=== PATIENT | male | born 1975 | race Caucasian/White ===

== ENCOUNTER 2019-12-07 14:50 | Emergency (ER) | payer OTHER ==
[~2019-12-07] VITALS: Ht 170.2 cm; Wt 104.3 kg
[2019-12-07 15:24] LABS: ABSOLUTE BASOPHILS 0.1 thou/uL (0.0-0.2); ABSOLUTE EOSINOPHILS 0.3 thou/uL (0.0-0.7); ABSOLUTE LYMPHOCYTES 3.1 thou/uL (0.8-5.3); ABSOLUTE MONOCYTES 0.6 thou/uL (0.0-1.2); ABSOLUTE NEUTROPHILS 4.3 thou/uL (1.6-8.1); BASOPHILS 0.8 %; EOSINOPHILS 3.3 %; HEMATOCRIT 42.9 % (42.0-52.0); HEMOGLOBIN 14.8 gm/dL (14.0-18.0); MCH 30.8 pg (26.0-34.0); MCHC 34.6 g/dL (28.0-37.0); MCV 89.2 fL (80.0-100.0); MONOCYTES 6.7 %; NUCLEATED RBCS 0 /100WBC; PLATELET COUNT* 238 thou/uL (150-400); POLYS 52.2 %; RBC 4.81 mil/uL (4.50-6.00); RDW-CV 13.3 % (10.5-14.5); WBC 8.2 thou/uL (4.0-11.0)
[2019-12-07 15:27] VITALS: BP 126/83
[2019-12-07 15:32] LABS: CALCIUM 8.7 mg/dL (8.5-10.1); CREATININE 1.2 mg/dL (0.6-1.3); POTASSIUM 3.6 mmol/L (3.5-5.1)
[2019-12-07 15:34] LABS: APTT 24.2 Seconds (25.0-31.3); PROTIME 10.5 Seconds (9.20-11.50)
[2019-12-07 15:45] LABS: ALBUMIN 3.6 g/dL (3.4-5.0); CK-MB MASS 0.9 ng/mL (<0.5-3.6); MAGNESIUM 1.5 mg/dL (1.8-2.4); TOTAL BILIRUBIN 0.7 mg/dL (<0.1-1.0); TOTAL PROTEIN 7.5 g/dL (6.4-8.2)
--- NOTE | 2019-12-08 10:33 | EKG ---
[place] [address] ELECTROCARDIOGRAM REPORT Name: AMIE SOL Room: [facility]#: [id number] Admission: 12/07/19 Attend Phys: Discharge: 12/07/19 Date of : 75 Date of Service: 12/07/19 1453 Report #: [id number] THIS REPORT FOR: //name// [facility] ED Test Date: 2019-12-07 Test Time: 14:53:27 Pat Name: AMIE SOL Department: Room: Gender: Wearing Apparel Assembler: : 1975 Requested By: Hussain Mehta Order Number: [id number] : Ameya Araujo Measurements Intervals [place] Rate: 115 P: 53 DE: 144 QRS: 35 QRSD: 99 T: 36 QT: 335 QTc: 464 Interpretive Statements Sinus tachycardia No previous ECG available for comparison Electronically Signed On 12-08-2019 10:33:31 CDT by Ameya Araujo [email or web address] <ELECTRONICALLY SIGNED> By: Ameya Araujo MD, [facility] 12/08/19 1033 1453 145 Ameya Araujo MD, FACC /EPI
== END 2019-12-07 16:02 | disposition home or self-care (01) ==
LOC: EDBD 14:50 → M.ERS 14:50
PROVIDERS: Family Medicine
DX: F41.0 Panic disorder [episodic paroxysmal anxiety] (principal); R42 Dizziness and giddiness; R79.1 Abnormal coagulation profile